=== PATIENT | female | born 1995 | race Caucasian/White ===

== ENCOUNTER 2016-09-21 12:44 | Emergency (ER) | payer BC ==
[~2016-09-21] VITALS: Ht 157.5 cm; Wt 81.6 kg
[2016-09-21] MEDS ORDERED: [UNRECOGNIZED DRUG - REMARK] (12:53)
[2016-09-21] MEDS ORDERED: ONDA8TAB9 PO (12:53)
[2016-09-21] MEDS ORDERED: [UNRECOGNIZED DRUG - REMARK] PO (12:53)
[2016-09-21] MEDS ORDERED: CETI-232 PO (12:53)
[2016-09-21] MEDS ORDERED: GABA100C PO (12:53)
[2016-09-21] MEDS ORDERED: DIPH25CA83 PO (12:53)
[2016-09-21] MEDS ORDERED: HYDR200T PO (12:53)
[2016-09-21] MEDS ORDERED: diphenhydrAMINE 50 MG/1 ML VIAL IV ONE (13:45)
[2016-09-21] MEDS ORDERED: METOCLOPRAMIDE HCL 10 MG/2 ML VIAL IV ONE (13:45)
[2016-09-21] MEDS ORDERED: PANTOPRAZOLE SODIUM 40 MG VIAL IV ONE (13:45)
[2016-09-21] MEDS ORDERED: IV NORMAL SALINE 1000 ML BAG IV ONE (13:45)
[2016-09-21] MEDS ORDERED: diphenhydrAMINE 50 MG/1 ML VIAL ONE (13:52)
[2016-09-21] MEDS ORDERED: PANTOPRAZOLE SODIUM 40 MG VIAL ONE (13:53)
[2016-09-21] MEDS ORDERED: METOCLOPRAMIDE HCL 10 MG/2 ML VIAL ONE (13:53)
[2016-09-21 13:57] LABS: BASOPHILS # (AUTO) 0.1 K/uL (0.0-8.0); BASOPHILS % (AUTO) 1.1 % (0.0-2.0); EOSINOPHILS # (AUTO) 0.1 K/uL (0.0-0.7); EOSINOPHILS % (AUTO) 2.5 % (0.0-7.0); HEMATOCRIT 43.6 % (37-47); HEMOGLOBIN 14.3 G/DL (12.0-16.0); LYMPHOCYTES # (AUTO) 1.7 K/UL (0.8-4.8); LYMPHOCYTES % (AUTO) 28.8 % (20.5-51.5); MEAN CORPUSCULAR HEMOGLOBIN 29.2 UUG (27.0-31.0); MEAN CORPUSCULAR HGB CONC 33 g/dL (32.0-37.0); MONOCYTES # (AUTO) 0.3 K/UL (0.1-1.30); MONOCYTES % (AUTO) 5.7 % (0.0-11.0); NEUTROPHILS # (AUTO) 3.6 K/UL (1.8-8.9); NEUTROPHILS % (AUTO) 61.9 % (38.5-71.5); PLATELET COUNT (AUTO) 266 K/UL (150-450); WHITE BLOOD COUNT (AUTO) 5.8 K/UL (4.0-11.2)
[2016-09-21] MEDS ORDERED: KETOROLAC TROMETHAMINE 30 MG INJ IVP ONE (14:00)
[2016-09-21 14:06] LABS: CREATININE 1.1 mg/dL (0.6-1.3); POTASSIUM 4.1 mmol/L (3.5-5.1)
[2016-09-21 14:11] LABS: BILIRUBIN,DIRECT 0.1 mg/dL (0.0-0.2); BILIRUBIN,TOTAL 0.3 mg/dL (0.2-1.0); TOTAL PROTEIN, SERUM 7.9 g/dL (6.4-8.2)
[2016-09-21] MEDS ORDERED: KETOROLAC TROMETHAMINE 30 MG INJ ONE (14:13)
[2016-09-21] MEDS ORDERED: MORPHINE SULFATE 2 MG/1 ML DISP.SYRIN IV ONE (14:15)
[2016-09-21] MEDS ORDERED: MORPHINE SULFATE 2 MG/1 ML DISP.SYRIN ONE (14:48)
--- NOTE | 2016-09-21 15:36 | NUR ---
PT SAYS FEELS BETTER, READY TO GO HOME. PT MOM AT BEDSIDE. PT NOT DRIVING
[2016-09-21 15:37] VITALS: BP 111/69
== END 2016-09-21 15:38 | disposition home or self-care (01) ==
LOC: ER 12:44
DX: R10.9 Unspecified abdominal pain (principal); F10.10 Alcohol abuse, uncomplicated; Z88.1 Allergy status to other antibiotic agents; Z90.49 Acquired absence of other specified parts of digestive tract
CPT/HCPCS: 36415; 80048; 80076; 83690; 84703; 85025; 96361; 96374; 96375; 99284; A4663; C9113; J1200; J1885; J2270; J2765; J7030 ×2